=== PATIENT | male | born 1975 | race African-American/Black ===

== ENCOUNTER 2017-08-01 19:29 | Emergency (ER) | payer MEDICAID ==
[~2017-08-01] VITALS: Ht 188 cm; Wt 82.0 kg
[2017-08-01] MEDS ORDERED: SODIUM CHLORIDE 0.9% 1,000 ML IV ONE (20:12)
[2017-08-01] MEDS ORDERED: ONDANSETRON HCL 4MG/2ML VIAL IV STA (20:12)
[2017-08-01 21:03] LABS: HEMATOCRIT. 44.2 % (42.0-52.0); HEMOGLOBIN. 15.1 g/dL (14.0-18.0); MEAN CORPUSCULAR HEMOGLOBIN 29.3 pg (28.0-32.0); MEAN CORPUSCULAR VOLUME 85.8 fL (80.0-94.0); MEAN PLATELET VOLUME 8.5 fl (7.4-10.4); PLATELET 211 x1000/uL (130-400); RED BLOOD CELL COUNT 5.15 mill/uL (4.7-6.1); RED CELL DISTRIBUTION WIDTH 14.6 % (11.6-14.6)
[2017-08-01 21:17] LABS: CARBON DIOXIDE 25 mEq/L (21-32); CHLORIDE 103 mEq/L (98-107); ETHANOL BLOOD < 10 mg/dL; TROPONIN I < 0.02 ng/mL (0.00-0.04)
[2017-08-01 21:25] LABS: PLATELET ESTIMATE NORMAL
[2017-08-01 23:30] VITALS: BP 149/49
== END 2017-08-01 23:35 | disposition home or self-care (01) ==
LOC: ER 19:29
DX: S06.0X0A Concussion without loss of consciousness, initial encounter (principal); S00.03XA Contusion of scalp, initial encounter; F17.200 Nicotine dependence, unspecified, uncomplicated; F12.10 Cannabis abuse, uncomplicated; X58.XXXA Exposure to other specified factors, initial encounter; Y93.89 Activity, other specified; Y92.89 Other specified places as the place of occurrence of the external cause; Y99.8 Other external cause status
CPT/HCPCS: 36415; 70450; 71010; 80053; 83690; 84484; 85025; 93005; 96361; 96374; 99285; G0482; J2405; J7030; Z7610

== ENCOUNTER 2017-11-04 09:15 | Emergency (ER) | payer MEDICAID ==
[~2017-11-04] VITALS: Ht 190.5 cm; Wt 91.0 kg
[2017-11-04] MEDS ORDERED: KETOROLAC 15MG/ML VIAL IM ONE (11:00)
[2017-11-04] MEDS ORDERED: ACETAMINOPHEN 500MG TABLET PO ONE (11:00)
[2017-11-04 11:34] VITALS: BP 117/75
== END 2017-11-04 11:36 | disposition home or self-care (01) ==
LOC: ER 09:53
DX: M54.5 Low back pain (principal); F12.10 Cannabis abuse, uncomplicated
CPT/HCPCS: 96372; 99283; J1885

== ENCOUNTER 2018-06-30 15:41 | Emergency (ER) | payer MEDICAID ==
[~2018-06-30] VITALS: Ht 182.9 cm; Wt 82.0 kg
[2018-06-30 22:15] VITALS: BP 118/60
== END 2018-06-30 22:28 | disposition home or self-care (01) ==
LOC: ER 15:41
DX: S93.401A Sprain of unspecified ligament of right ankle, initial encounter (principal); F17.210 Nicotine dependence, cigarettes, uncomplicated; F12.10 Cannabis abuse, uncomplicated; X58.XXXA Exposure to other specified factors, initial encounter; Y93.67 Activity, basketball; Y92.89 Other specified places as the place of occurrence of the external cause; Y99.8 Other external cause status
CPT/HCPCS: 73610; 99284; 99406; Z7610